=== PATIENT | female | born 1960 ===

== ENCOUNTER → 2022-04-23 09:28 | Outpatient (BNVA) | payer MEDICARE, MEDICAID, SELFPAY | PROVIDERS: Visit Provider Internal Medicine | DX: M47.812 Spondylosis without myelopathy or radiculopathy, cervical region (principal); G43.909 Migraine, unspecified, not intractable, without status migrainosus | CPT/HCPCS: 99202 ==

== ENCOUNTER → 2022-05-04 11:44 | Outpatient (BNVA) | payer MEDICARE, MEDICAID, SELFPAY | PROVIDERS: Visit Provider Internal Medicine | DX: M47.812 Spondylosis without myelopathy or radiculopathy, cervical region (principal) | CPT/HCPCS: 99212 ==

== ENCOUNTER 2022-06-06 05:58 | Outpatient (REF) | payer MEDICARE, MEDICAID, SELFPAY ==
--- NOTE | ~2022-06-06 | FL_ITS ---
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 COMPARISON: None. TECHNIQUE: Fluoroscopy performed by Dr. Matthieu Krishnan. Fluoroscopy time: 0.2 minutes. Cumulative Dose: 1.65 mGy. DAP: 0.214 Gy-cm2. Images: 2. FINDINGS: AP and lateral views of the cervical spine intraoperatively performed. [place] with contrast seen overlying the region of the left facet joints C3-C5. FL/FL guidance in treatment room IMPRESSION: Intraoperative fluoroscopy for pain management procedure.
== END 2022-06-06 05:59 | disposition home or self-care (01) ==
LOC: CF 05:58
PROVIDERS: Visit Provider Internal Medicine
DX: M47.812 Spondylosis without myelopathy or radiculopathy, cervical region (principal)
CPT/HCPCS: 64490; 64491

== ENCOUNTER → 2022-06-08 09:34 | Outpatient (BNVA) | payer MEDICARE, MEDICAID, SELFPAY | PROVIDERS: Visit Provider Internal Medicine | DX: M47.812 Spondylosis without myelopathy or radiculopathy, cervical region (principal); G43.909 Migraine, unspecified, not intractable, without status migrainosus | CPT/HCPCS: Q3014 ==

== ENCOUNTER → 2022-07-20 10:03 | Outpatient (BNVA) | payer MEDICARE, MEDICAID, SELFPAY | PROVIDERS: PCP Internal Medicine; Visit Provider Nurse Practitioner Family | DX: F07.81 Postconcussional syndrome (principal); G47.19 Other hypersomnia; R06.83 Snoring; G43.909 Migraine, unspecified, not intractable, without status migrainosus | CPT/HCPCS: 99202 ==

== ENCOUNTER → 2022-08-31 11:18 | Outpatient (BNVA) | payer MEDICARE, SELFPAY | PROVIDERS: PCP Internal Medicine; Visit Provider Internal Medicine | DX: M47.812 Spondylosis without myelopathy or radiculopathy, cervical region (principal) | CPT/HCPCS: 99212 ==

== ENCOUNTER 2022-09-26 06:02 | Outpatient (REF) | payer MEDICARE, MEDICAID, SELFPAY ==
--- NOTE | ~2022-09-26 | FL_ITS ---
EXAMINATION: XR FLUOROSCOPY WITH IMAGES CLINICAL INFORMATION: Spondylosis without myelopathy or radiculopathy, cervical region. COMPARISON: 06/06/2022 TECHNIQUE: Fluoroscopy Supervised By: Dr. Matthieu Krishnan. Fluoroscopy Time: 0.1 minutes. Cumulative Dose: 0.533 mGy-cm DAP: 0.0561 Gy-cm2 Images: 2. FINDINGS: Images demonstrate needles and contrast appearing to overlie the regions of left facets of C3 through C6. FL/FL guidance in treatment room IMPRESSION: Intraoperative fluoroscopy for pain management procedure.
== END 2022-09-26 06:03 | disposition home or self-care (01) ==
LOC: CF 06:02
PROVIDERS: Visit Provider Internal Medicine
DX: M47.812 Spondylosis without myelopathy or radiculopathy, cervical region (principal); G43.909 Migraine, unspecified, not intractable, without status migrainosus
CPT/HCPCS: 64490; 64491; 64492; J1100

== ENCOUNTER → 2022-10-12 08:49 | Outpatient (BNVA) | payer MEDICARE, MEDICAID, SELFPAY | PROVIDERS: PCP Internal Medicine; Visit Provider Internal Medicine | DX: M47.812 Spondylosis without myelopathy or radiculopathy, cervical region (principal); M25.569 Pain in unspecified knee | CPT/HCPCS: Q3014 ==

== ENCOUNTER → 2022-10-19 10:19 | Outpatient (BNVA) | payer MEDICARE, MEDICAID, SELFPAY | PROVIDERS: PCP Internal Medicine; Visit Provider Internal Medicine | DX: M25.569 Pain in unspecified knee (principal); M47.812 Spondylosis without myelopathy or radiculopathy, cervical region; R60.9 Edema, unspecified | CPT/HCPCS: 20610; 99212; J2795; J3301 ==

== ENCOUNTER 2023-04-04 14:31 | Outpatient (AMB) | payer MEDICARE, MEDICAID, SELFPAY ==
--- NOTE | 2023-04-04 14:32 | MHC.OFFVIS ---
Intake Vital Signs 04/04/23 14:33 Height 5 ft 7 in Weight 214 lb BMI 33.5 Intake Visit Reasons: follow up head trauma - Confirmed Intake Note: Patient presents for follow up head trauma. patient states I still have burning sensation under my nose and throat I was tested for thrush and haven't gotten my results. I haven't been sleeping well because I'm in the same apartment. Allergies Penicillins Allergy (Intermediate, Verified 04/04/23 14:37) lip swellng Seasonal Allergies Allergy (Mild, Verified 04/04/23 14:37) Runny Nose Medication List - Last Reconciled 04/04/23 by NAEL Pak albuterol sulfate 90 mcg/actuation (Ventolin HFA) 2 puffs inhalation Q4H PRN dicyclomine 10 mg PO BID fluticasone propionate 50 mcg/actuation 2 sprays intranasal DAILY furosemide 20 mg PO DAILY hydrochlorothiazide 25 mg PO DAILY ibuprofen 600 mg PO TID loratadine 10 mg PO DAILY losartan 50 mg PO DAILY magnesium oxide 400 mg PO BEDTIME 30 days meclizine 12.5 mg PO TID milk thistle 150 mg PO BID ondansetron HCl 4 mg PO Q8H PRN polyethylene glycol 3350 17 grams PO DAILY riboflavin (vitamin B2) 400 mg PO DAILY 30 days rizatriptan 5 - 10 mg (0.5 - 1 x 10 mg) PO Q2H PRN 21 days HPI HPI Comments History of Present Illness Details 62-yr-old female presents for f/u visit. Pt denies any significant interval medical changes. Pt reports that she continues to have the burning oral/throat symptoms. She did see ENT- she had thrush eval and is to have a upper GI series. She is still f/b [facility]- is supposed to have urine/fecal mold testing. She has not had the HST yet. She is having less headaches overall. Her dizziness i Complaint w/ B2 and Mag Using Rizatriptan prn- just about once a month. She is wondering about her vit D level d/t leg pains and fatigue. [facility] Medical History (Updated 04/04/23 @ 15:28 by NAEL Pak) Acid reflux Allergic rhinitis Allergic rhinitis Anemia Anemia Anxiety Bilateral leg edema Chronic venous insufficiency Chronic venous insufficiency Depression Depression Eczema Eczema Fibroid uterus GERD (gastroesophageal reflux disease) HTN (hypertension) Hyperhidrosis IBS (irritable bowel syndrome) Irritable bowel syndrome Migraine Mild intermittent asthma without complication Mild obstructive sleep apnea GISELLE (obstructive sleep apnea) Prediabetes Prediabetes PTSD (post-traumatic stress disorder) PTSD (post-traumatic stress disorder) Pure hypercholesterolemia Pure hypercholesterolemia Severe obesity Sickle cell trait Sickle cell trait Surgical History H/O colonoscopy History of History of History of carpal tunnel release History of carpal tunnel release Family History Mother Breast cancer Father Vascular disease Maternal Grandfather Lung cancer Brother CAD (coronary artery disease) Prostate cancer Social History Alcohol intake: never Patient Tobacco Use Status: Never used Tobacco Review of Systems Const All systems reviewed & are unremarkable except as noted in HPI and below Physical Exam Vital Signs: BMI result Body Mass Index 33.5 Const General: cooperative and no acute distress Orientation/consciousness: patient oriented x3 HEENT Head: Yes normocephalic Resp Effort & Inspection: normal respiratory effort and able to speak in complete sentences Neuro General: patient oriented x3, gait normal and CN's II-XI intact bilaterally Cognition (Neuro): normal cognition Motor exam (neuro): 5/5 motor strength present throughout Psych Appearance: grossly normal Mental Status: mental status grossly normal Speech and movement: Normal speech and movement present Affect: normal affect Attitude: cooperative Thought process: Normal thought process present Thought content: Normal thought content present Insight: Good insight present (Psych) Judgement: Good judgement present (Psych) Assessment & Plan Assessment & Plan (1) Postconcussion syndrome: Code(s): F07.81 - Postconcussional syndrome (2) Migraine: Code(s): G43.909 - Migraine, unspecified, not intractable, without status migrainosus (3) Sleep difficulties: Code(s): G47.9 - Sleep disorder, unspecified (4) Excessive daytime sleepiness: Code(s): G47.19 - Other hypersomnia (5) Snoring: Code(s): R06.83 - Snoring Plan Pt is again advised to undergo HST to assess status of her sleep apnea. Check vit D level Continue PT exercises F/u w/ ENT as scheduled. F/u w/ [facility]. ? For overall headache management: Discussed importance of good self-care, including but not limited to maintaining a healthy diet, adequate fluid intake, adequate sleep, and engaging in regular physical activity. For acute headache treatment: Continue Rizatriptan prn at onset of migraine. Previous acute migraine medication trials: Sumatriptan- not tolerated. Zomig- effective- but not on pt's insurance formulary. Acute migraine medication contraindications: None at this time. ? For headache prevention medication: Continue Riboflavin 400mg qam Continue Magnesium 400mg qhs Previous migraine prevention medication trials: None Migraine prevention medication contraindications: BBs d/t current resp s/s. ? f/u in 6 months or sooner prn new/worsening s/s. Orders: Orders Vitamin D 25-OH (D2 and D3) Today M79.606 - Pain in leg, unspecified, R53.83 - Other fatigue Medications: Refilled riboflavin (vitamin B2) 400 mg PO DAILY 30 tabs 6RF 30 days magnesium oxide may hold for loose stools 400 mg PO BEDTIME 30 tabs 6RF 30 days rizatriptan max 2 tabs per day or 4 tabs per week 5 - 10 mg (0.5 - 1 x 10 mg) PO Q2H PRN 12 tabs 3RF migraine headache 21 days Coding Level of Care Code Est Pt Level 4 (00724) Diagnoses Postconcussion syndrome F07.81 Migraine G43.909 Sleep difficulties G47.9 Excessive daytime sleepiness G47.19 Snoring R06.83
[2023-04-04 14:33] VITALS: BMI 33.5
== END 2023-04-04 15:46 | disposition home or self-care (01) ==
PROVIDERS: Visit Provider Nurse Practitioner Family
DX: G47.9 Sleep disorder, unspecified (principal); F07.81 Postconcussional syndrome; G44.309 Post-traumatic headache, unspecified, not intractable; G47.19 Other hypersomnia; R06.83 Snoring
CPT/HCPCS: 99213

== ENCOUNTER → 2023-04-04 14:31 | Outpatient (BNVA) | payer MEDICARE, MEDICAID, SELFPAY | PROVIDERS: Visit Provider Nurse Practitioner Family | DX: G43.909 Migraine, unspecified, not intractable, without status migrainosus (principal); F07.81 Postconcussional syndrome; G47.19 Other hypersomnia; R06.83 Snoring; Z79.899 Other long term (current) drug therapy | CPT/HCPCS: 99212 ==

== ENCOUNTER 2023-10-01 09:02 | Outpatient (AMB) | payer MEDICARE, MEDICAID, SELFPAY ==
--- NOTE | 2023-10-01 09:17 | A.OFFVIS_ITS ---
Intake Vital Signs 10/01/23 09:19 Height 5 ft 7 in Weight 214 lb BMI 33.5 BP 130/82 Blood Pressure Location Rt brachial Position Sitting Pulse 61 Pulse Source Pulse Oximeter Pulse Oximetry (%) 97 Oxygen Delivery Method Room Air Intake Visit Reasons: 6Mfollow up head trauma-LVM Intake Note: Patient presents for follow up. I still have burning pain in my throat and mouth area. Allergies Penicillins Allergy (Intermediate, Verified 10/01/23 09:19) lip swellng Seasonal Allergies Allergy (Mild, Verified 10/01/23 09:19) Runny Nose Medication List - Last Reconciled 10/01/23 by Maryjo Huerta, NAEL albuterol sulfate 90 mcg/actuation (Ventolin HFA) 2 puffs inhalation Q4H PRN dicyclomine 10 mg PO BID fluticasone propionate 50 mcg/actuation 2 sprays intranasal DAILY furosemide 20 mg PO DAILY hydrochlorothiazide 25 mg PO DAILY ibuprofen 600 mg PO TID loratadine 10 mg PO DAILY losartan 50 mg PO DAILY magnesium oxide 400 mg PO BEDTIME 30 days meclizine 12.5 mg PO TID milk thistle 150 mg PO BID ondansetron HCl 4 mg PO Q8H PRN polyethylene glycol 3350 17 grams PO DAILY riboflavin (vitamin B2) 400 mg PO DAILY 30 days rizatriptan 5 - 10 mg (0.5 - 1 x 10 mg) PO Q2H PRN 21 days HPI HPI Comments History of Present Illness Details 63-yr-old female presents for f/u visit. Pt denies any significant interval medical changes. Pt states that she continues to have constant throat burning sensation. She is being f/b ENT. She has negative testing for thrush. She is being worked up for mold allergy. She is scheduled for an endoscopy. States she was recently is seeing cardiology, Dr Mendez, at [facility]iology. She is having a migraine approx once a month, which is responsive within a few hours to Rizatriptan. She is complaint w/ Mag and B2. She did not have sleep study yet- would like to do in-lab sleep study d/t new murmur dx. Has a h/o GISELLE. Stopped using CPAP when she has had COVID-19- she returned the machine. Continues to snore and have excessive daytime tiredness. Baseline headache characteristics: Aura- May see flickering lights. Severe, Top of head/frontal dull beeping /throbbing headache, a/w photophobia, phonophobia, nausea, vomiting, some BUE numbness/tingling in BUE (also occurs other times as well), activity intolerance. Postdrome w/ residual fatigue and weakness. She started having migraine at onset of menses, and then they subsided after menopause, and they resumed after the head injury in 2021. [facility] Medical History (Updated 04/04/23 @ 15:28 by NAEL Pak) Allergic rhinitis Eczema PTSD (post-traumatic stress disorder) Depression IBS (irritable bowel syndrome) Mild obstructive sleep apnea GERD (gastroesophageal reflux disease) Prediabetes Pure hypercholesterolemia Sickle cell trait Chronic venous insufficiency Anemia Allergic rhinitis Migraine HTN (hypertension) Eczema Severe obesity Bilateral leg edema PTSD (post-traumatic stress disorder) Irritable bowel syndrome GISELLE (obstructive sleep apnea) Depression Acid reflux Prediabetes Mild intermittent asthma without complication Pure hypercholesterolemia Sickle cell trait Hyperhidrosis Chronic venous insufficiency Anemia Fibroid uterus Anxiety Surgical History History of History of carpal tunnel release History of History of carpal tunnel release H/O colonoscopy Family History Mother Breast cancer Father Vascular disease Maternal Grandfather Lung cancer Brother CAD (coronary artery disease) Prostate cancer Social History Alcohol intake: never Patient Tobacco Use Status: Never used Tobacco Physical Exam Vital Signs: Last Vital Signs Pulse 61 10/01/23 09:19 BP 130/82 10/01/23 09:19 Pulse Ox 97 10/01/23 09:19 Oxygen Delivery Method Room Air 10/01/23 09:19 BMI result Body Mass Index 33.5 Const General: cooperative and no acute distress Orientation/consciousness: patient oriented x3 Resp Effort & Inspection: normal respiratory effort and able to speak in complete sentences Neuro General: patient oriented x3 Cranial nerves: Yes CN's II-XII intact bilaterally Cognition (Neuro): normal cognition Psych Appearance: grossly normal Mental Status: mental status grossly normal Speech and movement: Normal speech and movement present Affect: normal affect Attitude: cooperative Assessment & Plan Assessment & Plan (1) Sleep difficulties: Code(s): G47.9 - Sleep disorder, unspecified (2) Excessive daytime sleepiness: Code(s): G47.19 - Other hypersomnia (3) Snoring: Code(s): R06.83 - Snoring (4) Postconcussion syndrome: Code(s): F07.81 - Postconcussional syndrome (5) Migraine: Code(s): G43.909 - Migraine, unspecified, not intractable, without status migrainosus Plan Pt is again advised to undergo sleep study- will request in-lab PSG- to assess status of her sleep apnea. Continue PT exercises F/u w/ ENT and cardiology as scheduled. F/u w/ [facility]. ? For overall headache management: Discussed importance of good self-care, including but not limited to maintaining a healthy diet, adequate fluid intake, adequate sleep, and engaging in regular physical activity. ? For acute headache treatment: Continue Rizatriptan prn at onset of migraine. Previous acute migraine medication trials: Sumatriptan- not tolerated. Zomig- effective- but not on pt's insurance formulary. Acute migraine medication contraindications: None at this time. ? For headache prevention medication: Continue Riboflavin 400mg qam Continue Magnesium 400mg qhs Previous migraine prevention medication trials: None Migraine prevention medication contraindications: BBs d/t current resp s/s. ? f/u in 6 months or sooner prn new/worsening s/s. Orders: Orders RT PSG in-lab sleep study Today G47.19 - Other hypersomnia, G47.9 - Sleep disorder, unspecified, R06.83 - Snoring Medications: Refilled riboflavin (vitamin B2) 400 mg PO DAILY 30 tabs 6RF 30 days rizatriptan max 2 tabs per day or 4 tabs per week 5 - 10 mg (0.5 - 1 x 10 mg) PO Q2H PRN 12 tabs 3RF migraine headache 21 days magnesium oxide may hold for loose stools 400 mg PO BEDTIME 30 tabs 6RF 30 days Coding Level of Care Code Est Pt Level 4 (50828) Diagnoses Sleep difficulties G47.9 Excessive daytime sleepiness G47.19 Snoring R06.83 Postconcussion syndrome F07.81 Migraine G43.909
[2023-10-01 09:19] VITALS: BP 130/82; PULSE 61; O2SAT 97; BMI 33.5
== END 2023-10-01 09:58 | disposition home or self-care (01) ==
PROVIDERS: PCP Internal Medicine; Visit Provider Nurse Practitioner Family
DX: G47.9 Sleep disorder, unspecified (principal); G47.19 Other hypersomnia; R06.83 Snoring; F07.81 Postconcussional syndrome; G43.909 Migraine, unspecified, not intractable, without status migrainosus
CPT/HCPCS: 99214

== ENCOUNTER → 2023-10-01 09:02 | Outpatient (BNVA) | payer MEDICARE, MEDICAID, SELFPAY | PROVIDERS: PCP Internal Medicine; Visit Provider Nurse Practitioner Family | DX: F07.81 Postconcussional syndrome (principal); G43.909 Migraine, unspecified, not intractable, without status migrainosus; G47.9 Sleep disorder, unspecified; G47.19 Other hypersomnia; R06.83 Snoring | CPT/HCPCS: 99212 ==

== ENCOUNTER 2024-03-20 08:05 | Outpatient (AMB) | payer MEDICARE, MEDICAID, SELFPAY ==
--- NOTE | 2024-03-20 08:11 | A.OFFVIS_ITS ---
Vital Signs 03/20/24 08:12 Height 5 ft 7 in Weight 208 lb BMI 32.6 BP 144/82 H Blood Pressure Location Rt brachial Position Sitting Pulse 54 Pulse Source Pulse Oximeter Pulse Oximetry (%) 98 Oxygen Delivery Method Room Air Intake Visit Reasons: 6M f/u head trauma-Confirmed Intake Note: Patient presents for follow up Allergies Penicillins Allergy (Intermediate, Verified 03/20/24 08:14) lip swellng Seasonal Allergies Allergy (Mild, Verified 03/20/24 08:14) Runny Nose Medication List - Last Reconciled 03/20/24 by NAEL Pak albuterol sulfate 90 mcg/actuation (Ventolin HFA) 2 puffs inhalation Q4H PRN coenzyme Q10 (Ultra CoQ10) 75 mg PO DAILY dicyclomine 10 mg PO BID epinephrine mL IM fluticasone propionate 50 mcg/actuation 2 sprays intranasal DAILY furosemide 20 mg PO DAILY ibuprofen 600 mg PO TID loratadine 10 mg PO DAILY losartan 50 mg PO DAILY magnesium oxide 400 mg PO BEDTIME 30 days meclizine 12.5 mg PO TID milk thistle 150 mg PO BID ondansetron HCl 4 mg PO Q8H PRN polyethylene glycol 3350 17 grams PO DAILY riboflavin (vitamin B2) 400 mg PO DAILY 30 days rizatriptan 5 - 10 mg (0.5 - 1 x 10 mg) PO Q2H PRN 21 days HPI Comments Details: 63-yr-old female presents for f/u visit. Pt denies any significant interval medical changes. Pt reports she has not been sleeping as well. She is sleeping on her couch. She has to replace her mattress, as there was a bedbug infestation in her apartment building. She also has not been spending much time at home to avoid the bedbugs. Has been needing to go to the cooling centers. She states she has started allergy shots through [facility], which has been helping her allergy symptoms to mold, dust mites, dust. States she recently had a Holter monitor (results pending) through cardiology, Dr Mendez, at [facility]iology. She is having a migraine approx 4 days per month- typically increased during the summer heat waves. Migraines are also triggered by light, poor sleep, and coffee- so she stopped taking coffee. which is responsive within a few hours to Using green tea, ice, rest, which helps some. Rizatriptan does help to take the edge off. She was wondering about trying Aleve. Not using Ibuprofen. She is complaint w/ Mag and B2. She did not have sleep study yet- would like to do in-lab sleep study d/t new murmur dx. Has a h/o GISELLE. Stopped using CPAP when she has had COVID-19- she returned the machine. Continues to snore and have excessive daytime tiredness. Baseline headache characteristics: Aura- May see flickering lights. Severe, Top of head/frontal dull beeping /throbbing headache, a/w photophobia, phonophobia, nausea, vomiting, some BUE numbness/tingling in BUE (also occurs other times as well), activity intolerance. Postdrome w/ residual fatigue and weakness. She started having migraine at onset of menses, and then they subsided after menopause, and they resumed after the head injury in 2021. [facility] Medical History (Updated 03/20/24 @ 18:19 by NAEL Pak) Allergic rhinitis Eczema PTSD (post-traumatic stress disorder) Depression IBS (irritable bowel syndrome) Mild obstructive sleep apnea GERD (gastroesophageal reflux disease) Prediabetes Pure hypercholesterolemia Sickle cell trait Chronic venous insufficiency Anemia Allergic rhinitis Migraine HTN (hypertension) Eczema Severe obesity Bilateral leg edema PTSD (post-traumatic stress disorder) Irritable bowel syndrome GISELLE (obstructive sleep apnea) Depression Acid reflux Prediabetes Mild intermittent asthma without complication Pure hypercholesterolemia Sickle cell trait Hyperhidrosis Chronic venous insufficiency Anemia Fibroid uterus Anxiety Surgical History History of History of carpal tunnel release History of History of carpal tunnel release H/O colonoscopy Family History Mother Breast cancer Father Vascular disease Maternal Grandfather Lung cancer Brother CAD (coronary artery disease) Prostate cancer Social History Alcohol intake: never Patient Tobacco Use Status: Never used Tobacco Physical Exam Vital Signs: Last Vital Signs Pulse 54 03/20/24 08:12 BP 144/82 H 03/20/24 08:12 Pulse Ox 98 03/20/24 08:12 Oxygen Delivery Method Room Air 03/20/24 08:12 BMI result Body Mass Index 32.6 Const General: cooperative and no acute distress Orientation/consciousness: patient oriented x3 Resp Effort & Inspection: normal respiratory effort and able to speak in complete sentences Neuro General: patient oriented x3 Cranial nerves: Yes CN's II-XII intact bilaterally Cognition (Neuro): normal cognition Psych Appearance: grossly normal Mental Status: mental status grossly normal Speech and movement: Normal speech and movement present Affect: normal affect Attitude: cooperative Assessment & Plan Assessment & Plan (1) Migraine: Code(s): G43.909 - Migraine, unspecified, not intractable, without status migrainosus Category: Medical Qualifiers: Migraine type: migraine (< 15 days per month) with aura Status migrainosus presence: without status migrainosus Intractability: not intractable Qualified Code(s): G43.109 - Migraine with aura, not intractable, without status migrainosus (2) Postconcussion syndrome: Code(s): F07.81 - Postconcussional syndrome Category: Medical (3) Excessive daytime sleepiness: Code(s): G47.19 - Other hypersomnia Category: Medical (4) Snoring: Code(s): R06.83 - Snoring Category: Medical (5) Sleep difficulties: Code(s): G47.9 - Sleep disorder, unspecified Category: Medical Plan Pt is again advised to undergo sleep study- will request in-lab PSG- to assess status of her sleep apnea. Continue PT exercises F/u w/ ENT and cardiology as scheduled. F/u w/ [facility]. ? For overall headache management: Discussed importance of good self-care, including but not limited to maintaining a healthy diet, adequate fluid intake, adequate sleep, and engaging in regular physical activity. ? For acute headache treatment: Continue Rizatriptan prn at onset of migraine. May take w/ Naproxen 500mg q 12hr prn. Previous acute migraine medication trials: Sumatriptan- not tolerated. Zomig- effective- but not on pt's insurance formulary. Acute migraine medication contraindications: None at this time. ? For headache prevention medication: Continue Riboflavin 400mg qam Continue Magnesium 400mg qhs Previous migraine prevention medication trials: None Migraine prevention medication contraindications: BBs d/t current resp s/s. ? f/u in 6 months or sooner prn new/worsening s/s. Medications: New naproxen Max 15 days per month. Take w/ food. 500 mg PO Q12H PRN 30 tabs 3RF migraine headache 30 days Changed From rizatriptan max 2 tabs per day or 4 tabs per week 5 - 10 mg (0.5 - 1 x 10 mg) PO Q2H 21 days PRN 12 tabs 3RF migraine headache To rizatriptan May take with Naproxen. Max 2 tabs per day or 4 tabs per week 5 - 10 mg (0.5 - 1 x 10 mg) PO Q2H PRN 12 tabs 3RF migraine headache 21 days Coding Level of Care Code Est Pt Level 4 (15130) Diagnoses Migraine with aura and without status migrainosus, not intractable G43.109 Migraine type: migraine (< 15 days per month) with aura Status migrainosus presence: without status migrainosus Intractability: not intractable Postconcussion syndrome F07.81 Excessive daytime sleepiness G47.19 Snoring R06.83 Sleep difficulties G47.9
[2024-03-20 08:12] VITALS: BP 144/82; PULSE 54; O2SAT 98; BMI 32.6
== END 2024-03-20 09:04 | disposition home or self-care (01) ==
PROVIDERS: PCP Internal Medicine; Visit Provider Nurse Practitioner Family
DX: G43.109 Migraine with aura, not intractable, without status migrainosus (principal); F07.81 Postconcussional syndrome; G47.19 Other hypersomnia; R06.83 Snoring; G47.9 Sleep disorder, unspecified
CPT/HCPCS: 99214

== ENCOUNTER → 2024-03-20 08:05 | Outpatient (BNVA) | payer MEDICARE, MEDICAID, SELFPAY | PROVIDERS: PCP Internal Medicine; Visit Provider Nurse Practitioner Family | DX: G43.109 Migraine with aura, not intractable, without status migrainosus (principal); R06.83 Snoring; G47.19 Other hypersomnia; G47.9 Sleep disorder, unspecified; F07.81 Postconcussional syndrome | CPT/HCPCS: 99212 ==

== ENCOUNTER → 2024-05-05 19:30 | Outpatient (REF) | payer MEDICARE, MEDICAID, SELFPAY | LOC: HO.SL 19:30 | PROVIDERS: PCP Internal Medicine; Visit Provider Nurse Practitioner Family | DX: R06.83 Snoring (principal); G47.19 Other hypersomnia; G47.9 Sleep disorder, unspecified | CPT/HCPCS: 95810 ==

== ENCOUNTER → 2024-05-05 22:54 | Outpatient (BNV) | payer MEDICARE, MEDICAID, SELFPAY | PROVIDERS: PCP Internal Medicine; Visit Provider Psychiatry & Neurology Neurology | DX: G47.33 Obstructive sleep apnea (adult) (pediatric) (principal) | CPT/HCPCS: 95810 ==

== ENCOUNTER 2024-05-21 11:09 | Outpatient (AMB) | payer MEDICARE, MEDICAID, SELFPAY ==
--- NOTE | 2024-05-21 11:09 | MHC.OFFVIS ---
Vital Signs 05/21/24 11:11 Height 5 ft 7 in Weight 204 lb 1 oz BMI 32.0 Intake Visit Reasons: Follow up Intake Note: Patient presents for follow up. had a sleep study done Allergies Penicillins Allergy (Intermediate, Verified 05/21/24 11:12) lip swellng Seasonal Allergies Allergy (Mild, Verified 05/21/24 11:12) Runny Nose mold Allergy (Unknown, Uncoded 05/21/24 11:13) Unknown HPI Comments Details: 63-yr-old female presents for f/u visit to discuss recent sleep study results. Since the last visit, pt underwent in-lab sleep study, results of which were c/w mild sleep apnea, w/ increased severity in REM sleep. AHI 8/hr w/ REM AHI 32/hr, O2 kp 80%, SpO2 < 88% x's 9 min, avergae SpO2 93%, PLMS < 1/hr. Pt is interested in resuming PAP tx. States she used to sleep well with CPAP, and only stopped using it d/t having COVID-19 some time ago. Pt reports she has not been sleeping well. She states she no longer has a mattress and has to sleep on her couch or a reclining beach/lawn chair d/t the recent bedbug infestation in her apartment building. Per pt her apartment has been tretaed, however she is still finding bedbug bites on her legs. She brings in a live bed bug in a sealed prescription container. She would like referal to ENT d/t her ongoing throat discomfort. She denies acid reflux, heart burn. She is having a migraine approx 4 days per month- typically increased during the summer heat waves. Migraines are also triggered by light, poor sleep, and coffee- so she stopped taking coffee. which is responsive within a few hours to Using green tea, ice, rest, which helps some. Rizatriptan does help to take the edge off. She was wondering about trying Aleve. Not using Ibuprofen. She is complaint w/ Mag and B2. Baseline headache characteristics: Aura- May see flickering lights. Severe, Top of head/frontal dull beeping /throbbing headache, a/w photophobia, phonophobia, nausea, vomiting, some BUE numbness/tingling in BUE (also occurs other times as well), activity intolerance. Postdrome w/ residual fatigue and weakness. She started having migraine at onset of menses, and then they subsided after menopause, and they resumed after the head injury in 2021. [facility] Medical History (Updated 05/21/24 @ 20:37 by NAEL Pak) Allergic rhinitis Eczema PTSD (post-traumatic stress disorder) Depression IBS (irritable bowel syndrome) Mild obstructive sleep apnea GERD (gastroesophageal reflux disease) Prediabetes Pure hypercholesterolemia Sickle cell trait Chronic venous insufficiency Anemia Allergic rhinitis Migraine HTN (hypertension) Eczema Severe obesity Bilateral leg edema PTSD (post-traumatic stress disorder) Irritable bowel syndrome GISELLE (obstructive sleep apnea) Depression Acid reflux Prediabetes Mild intermittent asthma without complication Pure hypercholesterolemia Sickle cell trait Hyperhidrosis Chronic venous insufficiency Anemia Fibroid uterus Anxiety Surgical History History of History of carpal tunnel release History of History of carpal tunnel release H/O colonoscopy Family History Mother Breast cancer Father Vascular disease Maternal Grandfather Lung cancer Brother CAD (coronary artery disease) Prostate cancer Social History Alcohol intake: never Patient Tobacco Use Status: Never used Tobacco Physical Exam Vital Signs: BMI result Body Mass Index 32.0 Const General: cooperative and no acute distress Orientation/consciousness: patient oriented x3 Resp Effort & Inspection: normal respiratory effort and able to speak in complete sentences Neuro General: patient oriented x3 Cranial nerves: Yes CN's II-XII intact bilaterally Cognition (Neuro): normal cognition Psych Appearance: grossly normal Mental Status: mental status grossly normal Speech and movement: Normal speech and movement present Affect: normal affect Attitude: cooperative Assessment & Plan Assessment & Plan (1) Mild obstructive sleep apnea: Comment: previous tx: APAP [id number] Code(s): G47.33 - Obstructive sleep apnea (adult) (pediatric) Category: Medical (2) Migraine: Code(s): G43.909 - Migraine, unspecified, not intractable, without status migrainosus Category: Medical Qualifiers: Migraine type: migraine (< 15 days per month) with aura Status migrainosus presence: without status migrainosus Intractability: not intractable Qualified Code(s): G43.109 - Migraine with aura, not intractable, without status migrainosus (3) Postconcussion syndrome: Code(s): F07.81 - Postconcussional syndrome Category: Medical (4) Excessive daytime sleepiness: Code(s): G47.19 - Other hypersomnia Category: Medical (5) Snoring: Code(s): R06.83 - Snoring Category: Medical (6) Sleep difficulties: Code(s): G47.9 - Sleep disorder, unspecified Category: Medical Plan For sleep difficulties: Reviewed in-lab sleep study results- mild GISELLE. Resume APAP [id number] nightly > 4 hrs. Note pt probabbly should not start PAP tx until the bedbug/cockroach infestation is cleared from her apartment. Pt asks for a letter r/t her sleep issues and the bedbug/cockroach etc infestations at her apartment. F/u w/ ENT- pt advsied she can call them to make a f/u appt. F/u cardiology as scheduled. F/u w/ [facility] as scheduled. ? For overall headache management: Discussed importance of good self-care, including but not limited to maintaining a healthy diet, adequate fluid intake, adequate sleep, and engaging in regular physical activity. ? For acute headache treatment: Continue Rizatriptan prn at onset of migraine. May take w/ Naproxen 500mg q 12hr prn. Previous acute migraine medication trials: Sumatriptan- not tolerated. Zomig- effective- but not on pt's insurance formulary. Acute migraine medication contraindications: None at this time. ? For headache prevention medication: Continue Riboflavin 400mg qam Continue Magnesium 400mg qhs Previous migraine prevention medication trials: None Migraine prevention medication contraindications: BBs d/t current resp s/s. ? f/u in 6 months or sooner prn new/worsening s/s. Coding Level of Care Code Est Pt Level 4 (77951) Diagnoses Mild obstructive sleep apnea G47.33 Migraine with aura and without status migrainosus, not intractable G43.109 Migraine type: migraine (< 15 days per month) with aura Status migrainosus presence: without status migrainosus Intractability: not intractable Postconcussion syndrome F07.81 Excessive daytime sleepiness G47.19 Snoring R06.83 Sleep difficulties G47.9
[2024-05-21 11:11] VITALS: BMI 32.0
== END 2024-05-21 12:02 | disposition home or self-care (01) ==
PROVIDERS: PCP Internal Medicine; Visit Provider Nurse Practitioner Family
DX: G47.33 Obstructive sleep apnea (adult) (pediatric) (principal); G43.109 Migraine with aura, not intractable, without status migrainosus; F07.81 Postconcussional syndrome; G47.19 Other hypersomnia; R06.83 Snoring; G47.9 Sleep disorder, unspecified
CPT/HCPCS: 99214

== ENCOUNTER → 2024-05-21 11:09 | Outpatient (BNVA) | payer MEDICARE, MEDICAID, SELFPAY | PROVIDERS: PCP Internal Medicine; Visit Provider Nurse Practitioner Family | DX: G47.33 Obstructive sleep apnea (adult) (pediatric) (principal); G43.109 Migraine with aura, not intractable, without status migrainosus; G47.19 Other hypersomnia; F07.81 Postconcussional syndrome; R06.83 Snoring | CPT/HCPCS: 99212 ==

== ENCOUNTER 2024-12-24 12:53 | Outpatient (AMB) | payer MEDICARE, MEDICAID, SELFPAY ==
--- NOTE | 2024-12-24 13:05 | A.OFFVIS_ITS ---
Vital Signs 3 12/24/24 13:10 Height 5 ft 7 in Weight 198 lb BMI 31.0 BP 150/90 H Blood Pressure Location Rt brachial Position Sitting Intake Visit Reasons: Follow up Intake Note: Follow up for migraines/sleep Linoleum Floor Layer Required: No Accompanied by: Self / Same As Patient Allergies Penicillins Allergy (Intermediate, Verified 12/24/24 13:11) lip swellng Seasonal Allergies Allergy (Mild, Verified 12/24/24 13:11) Runny Nose mold Allergy (Unknown, Uncoded 05/21/24 11:13) Unknown Medication List - Last Reconciled 12/24/24 by NAEL Pak albuterol sulfate 90 mcg/actuation (Ventolin HFA) 2 puffs inhalation Q4H PRN coenzyme Q10 (Ultra CoQ10) 75 mg PO DAILY epinephrine mL IM fluticasone propionate 50 mcg/actuation 2 sprays intranasal DAILY losartan 50 mg PO DAILY magnesium oxide 400 mg PO BEDTIME 30 days milk thistle 150 mg PO BID naproxen 500 mg PO Q12H PRN 30 days polyethylene glycol 3350 17 grams PO DAILY riboflavin (vitamin B2) 400 mg PO DAILY 90 days rizatriptan 5 - 10 mg (0.5 - 1 x 10 mg) PO Q2H PRN 21 days HPI Comments Details: 64-yr-old female presents for f/u of GISELLE and migraine. Pt reports she moved out of her old apartment, and into a new apartment w/o carpeting in [place]. She replaced most of her belongings, and was able to move without carrying the bedbugs with her. Pt is sleeping better, but still having nocturia 4-5 x's per night. She is taking quite a bit of water. Her new apartment has central air. She still does not have her CPAP machine. She reports her burning throat symptoms are better since moving, but still occuring. She saw ENT, per pt- they felt she might have had nerve damage in her throat d/t debris she inhaled when her ceiling fell on her. She is still seeing [facility]- for allergy injections. Previous, in-lab sleep study, results were c/w mild sleep apnea, w/ increased severity in REM sleep. AHI 8/hr w/ REM AHI 32/hr, O2 kp 80%, SpO2 < 88% x's 9 min, average SpO2 93%, PLMS < 1/hr. She reports her migraine attacks are overall getting better. She has had a few more the last 1-2 weeks, which she attributes to the weather changes and nasal allergy s/s. Migraines are also triggered by light, poor sleep, and coffee- so she stopped taking coffee. which is responsive within a few hours to using green tea, ice, rest, which helps some. Rizatriptan does help to take the edge off, and Naproxen continues to be helpful. She is complaint w/ Mag and B2. Baseline headache characteristics: Aura- May see flickering lights. Severe, Top of head/frontal dull beeping /throbbing headache, a/w photophobia, phonophobia, nausea, vomiting, some BUE numbness/tingling in BUE (also occurs other times as well), activity intolerance. Postdrome w/ residual fatigue and weakness. She started having migraine at onset of menses, and then they subsided after menopause, and they resumed after the head injury in 2021. [facility] Medical History (Updated 05/21/24 @ 20:37 by NAEL Pak) Allergic rhinitis Eczema PTSD (post-traumatic stress disorder) Depression IBS (irritable bowel syndrome) Mild obstructive sleep apnea GERD (gastroesophageal reflux disease) Prediabetes Pure hypercholesterolemia Sickle cell trait Chronic venous insufficiency Anemia Allergic rhinitis Migraine HTN (hypertension) Eczema Severe obesity Bilateral leg edema PTSD (post-traumatic stress disorder) Irritable bowel syndrome GISELLE (obstructive sleep apnea) Depression Acid reflux Prediabetes Mild intermittent asthma without complication Pure hypercholesterolemia Sickle cell trait Hyperhidrosis Chronic venous insufficiency Anemia Fibroid uterus Anxiety Surgical History History of History of carpal tunnel release History of History of carpal tunnel release H/O colonoscopy Family History Mother Breast cancer Father Vascular disease Maternal Grandfather Lung cancer Brother CAD (coronary artery disease) Prostate cancer Social History Alcohol intake: never Patient Tobacco Use Status: Never used Tobacco Physical Exam Vital Signs: BMI result Body Mass Index 31.0 Assessment & Plan Assessment & Plan (1) Mild obstructive sleep apnea: Comment: previous tx: APAP [id number] Code(s): G47.33 - Obstructive sleep apnea (adult) (pediatric) Category: Medical (2) Migraine: Code(s): G43.909 - Migraine, unspecified, not intractable, without status migrainosus Category: Medical Qualifiers: Intractability: not intractable Migraine type: migraine (< 15 days per month) with aura Status migrainosus presence: without status migrainosus Q ualified Code(s): G43.109 - Migraine with aura, not intractable, without status migrainosus (3) Postconcussion syndrome: Code(s): F07.81 - Postconcussional syndrome Category: Medical (4) Excessive daytime sleepiness: Code(s): G47.19 - Other hypersomnia Category: Medical (5) Snoring: Code(s): R06.83 - Snoring Category: Medical (6) Sleep difficulties: Code(s): G47.9 - Sleep disorder, unspecified Category: Medical Plan For sleep difficulties: Reviewed in-lab sleep study results- mild GISELLE. Resume APAP [id number] nightly > 4 hrs- as pt has moved into a new apartment building. To help optimize PAP tx usage: * Resume flonase * Trial Xyzal 2.5-5mg qhs prn allergy s/s F/u w/ ENT as scheduled. F/u w/ cardiology as scheduled. F/u w/ [facility] as scheduled. ? For overall headache management: Discussed importance of good self-care, including but not limited to maintaining a healthy diet, adequate fluid intake, adequate sleep, and engaging in regular physical activity. ? For acute headache treatment: Continue Rizatriptan prn at onset of migraine. May take w/ Naproxen 500mg q 12hr prn. Previous acute migraine medication trials: Sumatriptan- not tolerated. Zomig- effective- but not on pt's insurance formulary. Acute migraine medication contraindications: None at this time. ? For headache prevention medication: Resume Co-Q10 400mg qam w/ food. Continue Riboflavin 400mg qam Continue Magnesium 400mg qhs Previous migraine prevention medication trials: None Migraine prevention medication contraindications: BBs d/t current resp s/s. ? f/u in 6 months or sooner prn new/worsening s/s. Medications: New 2 coenzyme Q10 (Co Q-10) 400 mg PO DAILY 90 caps 3RF 90 days levocetirizine (Xyzal) 2.5 - 5 mg (0.5 - 1 x 5 mg) PO BEDTIME PRN 30 tabs 3RF allergy symptoms 30 days Changed 2 From rizatriptan May take with Naproxen. Max 2 tabs per day or 4 tabs per week 5 - 10 mg (0.5 - 1 x 10 mg) PO Q2H 21 days PRN 12 tabs 3RF migraine headache To rizatriptan May take with Naproxen. Max 2 tabs per day or 4 tabs per week 5 - 10 mg (0.5 - 1 x 10 mg) PO Q2H PRN 12 tabs 6RF migraine headache 30 days From magnesium oxide may hold for loose stools 400 mg PO BEDTIME 30 days 30 tabs 6RF To magnesium oxide may hold for loose stools 400 mg PO BEDTIME 90 tabs 3RF 90 days From fluticasone propionate 50 mcg/actuation 2 sprays intranasal DAILY To fluticasone propionate 50 mcg/actuation 2 sprays intranasal DAILY 16 grams 3RF 30 days Refilled 2 naproxen Max 15 days per month. Take w/ food. 500 mg PO Q12H PRN 30 tabs 6RF migraine headache 30 days riboflavin (vitamin B2) 400 mg PO DAILY 90 tabs 3RF 90 days Coding Level of Care Code Est Pt Level 4 (93613) Diagnoses Mild obstructive sleep apnea G47.33 Migraine with aura and without status migrainosus, not intractable G43.109 Intractability: not intractable Migraine type: migraine (< 15 days per month) with aura Status migrainosus presence: without status migrainosus Postconcussion syndrome F07.81 Excessive daytime sleepiness G47.19 Snoring R06.83 Sleep difficulties G47.9
[2024-12-24 13:10] VITALS: BP 150/90; BMI 31.0
--- OUTSIDE RECORDS SUMMARY | 2024-12-24 13:30 | XMS_ITS | Clinical Summary ---
Author Organization [address] [place] [address] [place] [phone] Phone Care Team Providers Care Silverware Assembler Name Role Phone Mikki Sales MD Primary Care Provider [phone] Allergies Active Allergy Reactions Criticality Noted Date Comments Food Allergy Formula 07/24/2019 Jodi Other Itching High 12/04/2010 Seasonal Allergies Runny nose, red itchy eyes Penicillin G Swelling 06/29/2019 Lip swollen Medications acetylcysteine 500 mg capsule Take by mouth. Active cyanocobalamin/f olic acid (COBALAMINE COMBINATIONS ORAL) Cobalamin Combinations (B-12) 1000-[address] under the tongue. Active ibuprofen (ADVIL,MOTRIN) 600 mg tablet TAKE 1 TABLET BY MOUTH EVERY 8 HOURS NEEDED FOR PAIN 2 Active MILK THISTLE ORAL Take by mouth. Activ e polyethylene glycol (MIRALAX) 17 gram packet Take 17 g by mouth daily. 4 Active reservoir inhalation (INSPIREASE) device Use with inhaler 2 Active albuterol HFA (Ventolin HFA) 90 mcg/actuation inhaler Inhale 2 Puffs into the lungs every 4 hours as needed for Cough or Wheezing. 3 Active aluminum chloride (Drysol Dab-O-Matic) 20 % external solution 3 Active ciclopirox (PENLAC) 8 % solution Apply daily to nails clean medication residue off of nail plate every 3 days with rubbing alcohol 3 Active EPINEPHrine (EpiPen 2-Jorge) 0.3 mg/0.3 mL injection 4 Active fluticasone propionate (FLONASE) 50 mcg/actuation nasal spray 2 Sprays by Each Nare route daily. 3 Active polyethylene glycol (Golytely) 236-22.74-6.74 -5.86 gram solution Take 4 L by mouth once for 1 dose. Drink half of prep, and repeat again after 4 to 6 hours 4 Active riboflavin (VITAMIN B2) 400 mg tablet Take 1 Tablet by mouth daily. 3 Active rizatriptan (MAXALT) 10 mg tablet Take 1 Tablet by mouth as needed. May repeat in 2 hours if needed Active coenzyme Q-10 100 mg capsule Take 3 Capsules by mouth daily. Active benzonatate (TESSALON) 100 mg capsule TAKE 1 CAPSULE BY MOUTH THREE TIMES DAILY FOR UP TO 7 DAYS NEEDED FOR COUGH Active chlorhexidine (PERIDEX) 0.12 % solution Active doxycycline (ADOXA) 100 mg tablet Active levoFLOXacin (LEVAQUIN) 750 mg tablet Take 1 tablet (750 mg total) by mouth 1 (one) time each day. for 7 days 5 Active Linzess 290 mcg capsule Take 1 capsule (290 mcg total) by mouth 1 (one) time each day. Active naproxen (NAPROSYN) 500 mg tablet TAKE 1 TABLET BY MOUTH EVERY 12 HOURS NEEDED FOR MIGRAINE HEADACHE. MAX 15 DAYS PER MONTH. TAKE WITH FOOD 4 Active hydroCHLOROthiaz vaibhav (HYDRODIURIL) 25 mg tablet Take 1 tablet (25 mg total) by mouth 1 (one) time each day. 90 tablet 2 5 Active losartan (COZAAR) 100 mg tablet Take 1 tablet (100 mg total) by mouth 1 (one) time each day. 90 tablet 2 5 Active magnesium oxide (MAG-OX) 400 mg (241.3 elemental magnesium) tablet Take 1 tablet (400 mg total) by mouth 1 (one) time each day. 90 tablet 2 5 Active cyanocobalamin (Vitamin B-12) 500 mcg tabletIndication s:Vitamin B12 deficiency Take 1 tablet (500 mcg total) by mouth 1 (one) time each day. 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 Sternal jugular veins also prominent. We will obtain echocardiogram to make sure she does not have a structural heart disease. She is supposed to have the labs. I will add a BNP to her routine lab order. Palpitations 10/04/2022 Overview (05/14/2024): Last Assessment & Plan: Controlled with lifestyle change. Assessment & Plan (10/27/2024 9:16 AM EDT): Orders: Cardiac holter monitor (<= 48 hours); Future Bilateral tinnitus 07/27/2022 Overview (09/14/2024): Tinnitus, bilateral; Note: Date Diagnosed: 07/27/2022 2:56 PM (H93.13) Cough 07/27/2022 Overview (09/14/2024): Cough, unspecified; Note: Changed from R05 to R05.9 (07/31/2022 12:30 PM) , Date Diagnosed: 07/27/2022 2:56 PM (R05) Headache 07/27/2022 Overview (09/14/2024): Headache, unspecified; Note: Changed from R51 to R51.9 (07/31/2022 12:29 PM) , Date Diagnosed: 07/27/2022 2:56 PM (R51) Anemia 07/24/2019 Assessment & Plan (10/27/2024 9:16 AM EDT): Orders: Comprehensive metabolic panel; Future Lipid panel with reflex to direct LDL; Future Complete blood count; Future Thyroid stimulating hormone; Future Vitamin B12; Future Anxiety 07/24/2019 Chronic venous insufficiency 07/24/2019 Fibroid uterus 07/24/2019 Overview (05/14/2024): multiple Hyperhidrosis 07/24/2019 Sickle cell trait ([facility] V24) 07/24/2019 Mild intermittent asthma without complication Pure hypercholesterolemia 06/29/2019 Assessment & Plan (10/27/2024 9:16 AM EDT): Orders: Comprehensive metabolic panel; Future Lipid panel with reflex to direct LDL; Future Complete blood count; Future Thyroid stimulating hormone; Future Vitamin B12; Future Depression 06/12/2013 Assessment & Plan (10/27/2024 9:16 AM EDT): Orders: Comprehensive metabolic panel; Future Lipid panel with reflex to direct LDL; Future Complete blood count; Future Thyroid stimulating hormone; Future Vitamin B12; Future GISELLE (obstructive sleep apnea) 11/17/2012 Overview (05/14/2024): 03/2017 Home Sleep Study: Mild GISELLE, rec. Auto CPAP 8-20cm H2O w/ heated humidification or f/u titration Irritable bowel syndrome with constipation 01/26 Overview (05/14/2024): Non ulcer dyspepsia PTSD (post-traumatic stress disorder) 09/18/2010 Bilateral leg edema 09/02/2009 Severe obesity (BMI 35.0-39. 9) with comorbidity (CMS/[facility] V24, [facility] V28) 09/02/2009 Eczema 07/06/2009 Allergic rhinitis 05/03/2009 HTN (hypertension), benign 05/03/2009 Overview (05/14/2024): Previous pcp [facility] 08/21- [place] Last Assessment & Plan: Blood pressure is high today. But she did not take her medications. Asked her to monitor blood pressures at home. She appears taking both furosemide and hydrochlorothiazide. I will discontinue hydrochlorothiazide. Assessment & Plan (10/27/2024 9:16 AM EDT): Orders: Comprehensive metabolic panel; Future Lipid panel with reflex to direct LDL; Future Complete blood count; Future Thyroid stimulating hormone; Future Vitamin B12; Future Migraine 05/03/2009 Encounters Date Type Department Care Team Description 12/03/2024 Telephone Vascular Surgery - [place] [address] [facility] [address] [place] [phone] Loreta Torres MD Fitting for DME 12/03/2024 Telephone Internal Medicine [facility] 175 [facility] 200 [place] [phone] Mikki Sales MD [place]: Bloodwork Request 11/24/2024 9:30 AM EDT Office Visit Orthopedic Surgery [facility] 250 175 [facility] [address] [place] [phone] Vipul West DPM Controlled type 2 diabetes with neuropathy (CMS/[facility] V24, CMS/[facility]ER[facility] V28) (Primary Dx); Pain in both feet; Achilles tendinitis, left leg; Calcaneal spur of left foot 11/24/2024 8:30 AM EDT Office Visit Internal Medicine [facility] 175 [facility] 200 [place] [phone] Jm Rosa NP Hypertension, unspecified type (Primary Dx); Anxiety and depression; Palpitations; BMI 30.0-30.9,adult; At moderate risk for fall; Osteoarthritis of both knees, unspecified osteoarthritis type; Lymphedema; Chronic venous insufficiency; Vitamin B12 deficiency 11/24/2024 Telephone Internal Medicine - [place] 175 [facility] [address] [place] [phone] Jm Rosa NP Medical supplies 11/24/2024 Telephone Internal Medicine - [place] 175 [facility] [address] [place] [phone] Mikki Sales MD Form: Request For Acommodation 11/19/2024 10:00 AM EDT Ancillary Procedure [facility] [address] [facility] 101 [place] [phone] Palpitations 10/27/2024 8:15 AM EDT Office Visit Internal Medicine - [place] 175 [facility] [address] [place] [phone] Mikki Sales MD Anemia, unspecified type (Primary Dx); HTN (hypertension), benign; Pure hypercholesterolemia; Depression, unspecified depression type; Hyperglycemia; Palpitations; Encounter for subsequent annual wellness visit (AWV) in Medicare patient 10/27/2024 Telephone Internal Medicine - [place] [address] [phone] Lidia Holloway [place] Walk-in from Last 3 Months Immunizations Name Administration Dates Next Due Hep B, Unspecified 10/08/2008,08/25/2008 Hepatitis B ([id number] , Recombivax HB-Adult) 19yo and older 05/15/2013,12/13/2008,10/08/2008,08/25 Influenza trivalent, with pr eservative (Fluzone; Afluria) 6mo and older 08/16/2008 Measles 08/19/2008 Meningococcal MCV4P 03/27/2017 Meningococcal, Unspecified 03/27/2017 Mumps 08/19/2008 PPD Test 09/07/2011,11/21/2009 Pneumococcal polysaccharide 23 valent (Pneumovax 23) 2yo and older 11/07/2018 Rubella 08/19/2008 Tdap Tetanus diptheria acell ular pertussis (Boostrix; Adacel) 7yo and older 11/07/2018,11/21/2009,08/16/2008 Varicella live (Varivax) 12m o and older 08/19/2008 Surgical History Surgery Date Site/Laterality Comments ESOPHAGOGASTRODUODENOSCOPY 09/06/2010 PROCEDURE: RI ESOPHAGOGASTRODUODENOSCOPY TRANSORAL DIAGNOSTIC; COMMENT: Normal SECTION PROCEDURE: HISTORICAL ; COMMENT: x 2 COLONOSCOPY 11/23/2011 PROCEDURE: HISTORICAL COLONOSCOPY; COMMENT: normal CARPAL TUNNEL RELEASE 11/2015 Left PROCEDURE: HISTORICAL CARPAL TUNNEL REL; COMMENT: Right - 08/2015 OTHER SURGICAL HISTORY 02/22/2012 PROCEDURE: RI ENDOMETRIAL BX W/WO ENDOCERVIX BX W/O DILAT SPX; COMMENT: DUB OTHER SURGICAL HISTORY 03/23/2011 PROCEDURE: RI ENDOMETRIAL BX W/WO ENDOCERVIX BX W/O DILAT SPX; COMMENT: DUB COLONOSCOPY 05/21/2017 PROCEDURE: HISTORICAL COLONOSCOPY; COMMENT: No report Medical History Medical History Date Comments Acid reflux DX:Acid reflux Prediabetes DX:Prediabetes Migraine DX:Migraine PTSD (post-traumatic stress disorder) 09/18/2010 DX:PTSD (post-traumatic stress disorder) Depression 06/12/2013 DX:Depression Anxiety 07/24/2019 DX:Anxiety GISELLE (obstructive sleep apnea) 11/17/2012 DX :GISELLE (obstructive sleep apnea); COMMENT: 03/2017 Home Sleep Study: Mild GISELLE, rec. Auto CPAP 8-20cm H2O w/ heated humidification or f/u titration Fibroid uterus 07/24/2019 DX:Fibroid uteru s; COMMENT: multiple Anemia 07/24/2019 DX:Anemia Chronic venous insufficiency 07/24/2019 DX: Chronic venous insufficiency Hyperhidrosis 07/24/2019 DX:Hyperhidrosis Sickle cell trait (CMS/HCC V24) 07/24/2019 DX:Sickle cell trait (HCC) Severe obesity (BMI 35.0-39. 9) with comorbidity (CMS/HCC V24, CMS/HCC V28) 09/02/2009 DX:Severe obesity (BMI 35.0- 39.9) with comorbidity ([facility]) Pure hypercholesterolemia 06/29/2019 DX:Pur e hypercholesterolemia Mild intermittent asthma wit hout complication 06/29/2019 DX:Mild intermittent asthma without complication Irritable bowel syndrome 01/26/2011 DX:Irri table bowel syndrome; COMMENT: Non ulcer dyspepsia HTN (hypertension), benign 05/03/2009 DX:HT N (hypertension), benign; COMMENT: Previous pcp [facility] 08/21-[place] Eczema 07/06/2009 DX:Eczema Bilateral leg edema 09/02/2009 DX:Bilateral leg edema Allergic rhinitis 05/03/2009 DX:Allergic rh initis Family History Medical History Relation Name Comments Coronary artery disease Brother Other: vascular disease Father vei ns in legs , they thought they may have to take off a toe Lung cancer Maternal Grandfather Breast cancer Mother age 66, D iabetes Colon cancer Neg Hx as of 10/20/2013 Relation Name Status Comments Brother Father Alive Maternal Grandfather Mother (Age 68) breast can cer Social History Tobacco Use Types Packs/Day Years Used Date Smoking Tobacco: Never Smokeless Tobacco: Never Alcohol Use Standard Drinks/Week Comments No 0 (1 standard drink = 0.6 oz pur e alcohol) Comments No Sex and Gender Information Value Date Recorded Sex Assigned at Not on file Legal Sex Female 7:29 AM EST Gender Identity Not on file Sexual Orientation Not on file 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 Not on file Not on file Not on file Obstetrics History Para Term AB IAB SAB Ectopic Multiple Livin g Live Births 3 2 2 1 1 2 2 Date Outcome GA Total Labor Labor/2nd/3rd Weight Sex Type Anes PTL Fina A1 A5 Name Clin IAB 1990 Term M CS-Un spec Living Isabel 1995 Term F CS-Un spec Living Myasha Last Filed Vital Signs Vital Sign Reading Time Taken Comments Blood Pressure 140/98 11/24/2024 8:27 AM EDT Pulse 58 11/24/2024 8:26 AM EDT Temperature 36.6 ??C (97.8 ??F) 11/24/2024 8:26 AM ED T Respiratory Rate - - Oxygen Saturation 98% 11/24/2024 8:26 AM EDT Inhaled Oxygen Concentration - - Weight 88 kg (194 lb) 11/24/2024 9:56 AM EDT Height 170.2 cm (5' 7.01 ) 11/24/2024 9:56 AM ED T Body Mass Index 30.38 11/24/2024 9:56 AM EDT Plan of Treatment Upcoming Encounters Date Type Department Care Team (Late st Contact Info) Description 02/17/2025 8:15 AM EDT Office Visit Orthopedic Surgery - [place] 250 175 [facility] 250 [place] [phone] Vipul West DPM 175 [facility] 250 [place] [address] 02/17/2025 9:45 AM EDT Office Visit Internal Medicine - [place] 175 [facility] 200 [place] [phone] Mikki Sales MD 175 [facility] 200 [place] [phone] 02/25/2025 2:15 PM EDT Ancillary Procedure [facility] 101 300 [facility] 101 [place] [phone] 03/10/2025 2:00 PM EDT Office Visit Vascular Surgery - [place] 300 [facility] 210 [place] [phone] Loreta Torres MD 300 [facility] 210 [place] [address] Health Maintenance Due Date Last Done Comments Diabetes: Annual Foot Exam 1972 Diabetes: Annual Retina Eye Exam 1972 Zoster Vaccines (1 of 2) 2012 08/19/2008 Pneumococcal Vaccine: 50+ Years (2 of 2 - PCV) 11/08/2019 11/07/2018 Pneumococcal Vaccine: Pediatrics (0 to 5 Years) and At-Risk Patients (6 to 64 Years) (2 of 2 - PCV) 11/08/2019 11/07/2018 RSV Immunization Adult Patients (1 - Risk 60-74 years 1-dose series) 2022 Social Influencers of Health Screening 07/21/2022 COVID-19 Vaccine ( - season) 2024 Diabetes: Annual Urine Albumin-Creatinine Ratio (uACR) 11/25/2024 03/28/2022 Influenza Vaccine (Season Ended) 2025 08/16/2008 Diabetes: Blood Sugar Control Test (HGBA1C) 04/29/2025 10/27/2024, 10/11/2022 Breast Cancer Screening 06/11/2025 06/11/2023 Depression Screening 10/27/2025 10/27/2024 Diabetes: Annual GFR (Glomerular Filtration Rate) 10/27/2025 10/27/2024, 10/11/2022 Hypertension/CHF/CAD Annual BMP Blood Test 10/27/2025 10/27/2024, 10/11/2022 Medicare Annual Wellness Visit 10/27/2025 10/27/2024 Colorectal Cancer Screening: Colonoscopy 05/21/2027 05/21/2017 DTaP,Tdap,and Td Vaccines (4 - Td or Tdap) 11/07/2028 11/07/2018, 11/21/2009, 08/16/2008 Cervical Cancer Screening: HPV 09/16/2029 09/16/2024, 08/25/2020 Cholesterol Screening (Lipid Panel) 10/27/2029 10/27/2024, 03/27/2022 Varicella Vaccines Aged Out 08/19/2008 No longer eligible based on patient's age to complete this topic Hepatitis B Vaccines Completed 05/15/2013, 12/13/2008, 10/08/2008, Additional history exists HIV Screening Completed 11/12/2013 Hepatitis C Screening Completed 11/12/2013 Meningococcal ACWY Vaccine Aged Out 03/27/2017, No longer eligible based on patient's age to complete this topic HIB Vaccines Aged Out No longer eligi ble based on patient's age to complete this topic HPV Vaccines Aged Out No longer eligi ble based on patient's age to complete this topic Hepatitis A Vaccines Aged Out No long er eligible based on patient's age to complete this topic IPV Vaccines Aged Out No longer eligi ble based on patient's age to complete this topic MMR Vaccines Aged Out No longer eligi ble based on patient's age to complete this topic Meningococcal B Vaccine Aged Out No l onger eligible based on patient's age to complete this topic RSV Immunization Patients Under 20 months Aged Out No longer eligible based on patient's age to complete this topic Procedures Procedure Name Priority Date/Time Associated Diagnosis Comments CARDIAC HOLTER MONITOR (REPORT GENERATED IN HOUSE) Routine 11/19/2024 9:54 AM EDT Palpitations IRON AND TIBC Routine 10/27/2024 9:34 AM EDT Anemia, unspecified type FERRITIN Routine 10/27/2024 9:34 AM EDT Anemia, unspecified type HEMOGLOBIN A1C Routine 10/27/2024 9:34 AM EDT Hyperglycemia VITAMIN B12 Routine 10/27/2024 9:34 AM EDT Anemia, unspecified type HTN (hypertension), benign Pure hypercholesterolemia Depression, unspecified depression type THYROID STIMULATING HORMONE Routine 10/27/2024 9:34 AM EDT Anemia, unspecified type HTN (hypertension), benign Pure hypercholesterolemia Depression, unspecified depression type COMPLETE BLOOD COUNT Routine 10/27/2024 9:34 AM EDT Anemia, unspecified type HTN (hypertension), benign Pure hypercholesterolemia Depression, unspecified depression type LIPID PANEL WITH REFLEX TO DIRECT LDL Routine 10/27/2024 9:34 AM EDT Anemia, unspecified type HTN (hypertension), benign Pure hypercholesterolemia Depression, unspecified depression type COMPREHENSIVE METABOLIC PANEL Routine 10/27/2024 9:34 AM EDT Anemia, unspecified type HTN (hypertension), benign Pure hypercholesterolemia Depression, unspecified depression type HPV WITH REFLEX GENOTYPE Routine 09/16/2024 3:44 PM EST Encounter for well woman exam with routine gynecological exam Screening for cervical cancer HM URINE ALBUMIN CREATININE RATIO Routine 03/28/2022 COLONOSCOPY Routine 05/21/2017 HEPATITIS C SCREENING Routine 11/12/2013 HIV SCREENING Routine 11/12/2013 from Last 3 Months or Most Recently Relevant to Health Maintenance Results * CARDIAC HOLTER MONITOR (REPORT GENERATED IN HOUSE) (11/19/2024 9:54 AM EDT) Anatomical Region Laterality Modality Cardiac Diagnost ic Narrative 11/25/2024 7:16 PM EDT ?Normal sinus rhythm with occasional PACs and short atrial runs up to 26 beats in duration. ??Patient's symptoms did not correlate with an arrhythmia. [facility] [address] [facility], [id number], [place] [address] TEL: FAX: Type of test: ??48 hour Holter Monitor Date of test: ??11/19/24 Ordering provider: ??Mikki Sales MD Reason for Test: ??Palpitations PVCA Clean Room Assembler Findings: 1: The predominant rhythm was Normal Sinus Rhythm. 2: Occasional PACs with rare atrial pairs, atrial bi/trigeminy, and atrial runs up to 26 beats. Rare PVCs with two couplets. 3: No pauses noted. Longest R-R 1.9 sec. 4: Diary returned with palpitations, lightheadedness, dizziness, and chest pain noted. EKG at those times showed Sinus Rhythm at 58- 99 bpm. No atrial or ventricular ectopy noted at those times. Impression: Sinus rhythm with occasional premature atrial complexes and atrial runs the longest being 26 beats. ??Rare PVCs. ??Patient's symptoms of palpitations lightheadedness and dizziness generally corresponded to sinus rhythm. Mikki Sales MD [facility] PROCEDURES Final Result * (ABNORMAL) Lipid panel with reflex to direct LDL (10/27/2024 9:34 AM EDT) Cholesterol 230(H) 0 - 200 mg/dL LAB CHEMISTRY METHOD 10/27/2024 11:34 AM EDT [facility] Triglycerides 59 0 - 150 mg/dL LAB CHEMISTRY METHOD 10/27/2024 11:34 AM EDT [facility] HDL 117 >=40 mg/dL LAB CHEMISTRY METHOD 10/27/2024 11:34 AM EDT [facility] LDL Calculated 101(H) 0 - 100 mg/dL LAB CHEMISTRY METHOD 10/27/2024 11:34 AM EDT [facility] VLDL Cholesterol Jose Antonio 11.8 mg/dL LAB CHEMISTRY METHOD 10/27/2024 11:34 AM EDT [facility] Non HDL Chol. (LDL+VLDL) 113 <145 mg/dL LAB CHEMISTRY METHOD 10/27/2024 11:34 AM EDT [facility] Chol/HDL Ratio 2.0 0.0 - 4.4 LAB CHEMISTRY METHOD 10/27/2024 11:34 AM EDT [facility] Blood Venous blood specimen / Unknown Venipuncture / Unknown 10/27/2024 9:34 AM EDT 10/27/2024 9:49 AM EDT us Mikki Sales MD LAB BLOOD ORDERABLES Final Res ult Performing Organization Address City/[facility]/ZIP Co de Phone Number [facility] [address] [place] [address], [place] [phone] * Iron and TIBC (10/27/2024 9:34 AM EDT) Iron 72 40 - 150 mcg/dL LAB CHEMISTRY METHOD 10/29/2024 4:24 PM EDT [facility] TIBC 354 250 - 450 mcg/dL LAB CHEMISTRY METHOD 10/29/2024 4:24 PM EDT [facility] Iron Saturation 20 15 - 50 % LAB CHEMISTRY METHOD 10/29/2024 4:24 PM EDT [facility] Blood Venous blood specimen / Unknown Venipuncture / Unknown 10/27/2024 9:34 AM EDT 10/27/2024 9:49 AM EDT us Mikki Sales MD LAB BLOOD ORDERABLES Final Res ult Performing Organization Address City/[facility]/ZIP Co de Phone Number [facility] [address] [place] [address], [place] [phone] * (ABNORMAL) Complete blood count (10/27/2024 9:34 AM EDT) [facility] WBC 3.7(L) 4.8 - 10.8 K/mcL LAB [facility] RBC 5.30(H) 3.80 - 4.80 M/mcL LAB [facility]OLOG[facility] Hemoglobin 12.7 11.5 - 16.0 g/dL LAB HEMETOLOGY METHOD 10/27/2024 10:16 AM [facility] Hematocrit 40.0 35.0 - 47.0 % LAB HEMETOLOGY METHOD 10/27/2024 10:16 AM [facility] MCV 75.5(L) 79.0 - 98.0 FL LAB HEMETOLOGY METHOD 10/27/2024 10:16 AM [facility] MCH 24.0(L) 27.0 - 32.0 pcg LAB HEMETOLOGY METHOD 10/27/2024 10:16 AM [facility] MCHC 31.8(L) 32.0 - 37.0 g/dL LAB HEMETOLOGY METHOD 10/27/2024 10:16 AM [facility] RDW 15.7(H) 11.0 - 15.0 % LAB HEMETOLOGY METHOD 10/27/2024 10:16 AM [facility] Platelets 208 130 - 400 K/mcL LAB HEMETOLOGY METHOD 10/27/2024 10:16 AM [facility] MPV 10.1 7.0 - 11.0 FL LAB HEMETOLOGY METHOD 10/27/2024 10:16 AM [facility] NRBC 0.0 <1.0 % LAB HEMETOLOGY METHOD 10/27/2024 10:16 AM EDT [facility] NRBC Absolute 0.00 <0.10 K/[facility] LAB HEMETOLOGY METHOD 10/27/2024 10:16 AM EDT [facility] Blood Venous blood specimen / Unknown Venipuncture / Unknown 10/27/2024 9:34 AM EDT 10/27/2024 9:51 AM EDT Mikki Sales MD LAB BLOOD ORDERABLES Final Res ult Performing Organization Address [facility]/ZIP Co de Phone Number [facility] [address] [place] [address], * Thyroid stimulating hormone (10/27/2024 9:34 AM EDT) TSH 1.44 0.40 - 4.00 mcIU/mL LAB CHEMISTRY METHOD 10/27/2024 11:16 AM EDT [facility] Blood Venous blood specimen / Unknown Venipuncture / Unknown 10/27/2024 9:34 AM EDT 10/27/2024 9:49 AM EDT Mikki Sales MD LAB BLOOD ORDERABLES Final Res ult Performing Organization Address [facility]/ZIP Co de Phone Number [facility] [address] [place] [address], [place] [phone] * Hemoglobin A1c (10/27/2024 9:34 AM EDT) Hemoglobin A1C 5.8 <6.5 % LAB CHEMISTRY METHOD 10/27/2024 11:43 AM EDT [facility] [facility] Mean Bld Glu Estim. 120 mg/dL LAB CHEMISTRY METHOD 10/27/2024 11:43 AM EDT [facility] Blood Venous blood specimen / Unknown Venipuncture / Unknown 10/27/2024 9:34 AM EDT 10/27/2024 9:51 AM EDT us Mikki Sales MD LAB BLOOD ORDERABLES Final Res ult Performing Organization Address [facility] Co de Phone Number [facility] [address] [place] [address], [place] [phone] * Ferritin (10/27/2024 9:34 AM EDT) Ferritin 90 8 - 252 ng/mL LAB CHEMISTRY METHOD 10/29/2024 4:24 PM EDT [facility] Blood Venous blood specimen / Unknown Venipuncture / Unknown 10/27/2024 9:34 AM EDT 10/27/2024 9:49 AM EDT Mikki Sales MD LAB BLOOD ORDERABLES Final Res ult Performing Organization Address [facility] Co de Phone Number [facility] [address] [place] [address], [place] [phone] * Vitamin B12 (10/27/2024 9:34 AM EDT) Pathologist [facility] Vitamin B-12 440 250 - 900 pcg/mL LAB CHEMISTRY METHOD 10/27/2024 11:33 AM EDT [facility] Blood Venous blood specimen / Unknown Venipuncture / Unknown 10/27/2024 9:34 AM EDT 10/27/2024 9:49 AM EDT Mikki Sales MD LAB BLOOD ORDERABLES Final Res ult Performing Organization Address City/[facility]/ZIP Co de Phone Number [facility] [address] [place] [address], [place] [phone] * Comprehensive metabolic panel (10/27/2024 9:34 AM EDT) Sodium 141 133 - 145 mmol/L LAB [facility]STR[facility] Potassium 3.7 3.5 - 5.5 mmol/L LAB CHEMISTRY METHOD 10/27/2024 11:33 AM [facility] Chloride 104 96 - 110 mmol/L LAB CHEMISTRY METHOD 10/27/2024 11:33 AM [facility] CO2 28 21 - 32 mmol/L LAB CHEMISTRY METHOD 10/27/2024 11:33 AM [facility] Anion Gap 9 3 - 11 LAB CHEMISTRY METHOD 10/27/2024 11:33 AM [facility] Glucose 86 70 - 100 mg/dL LAB CHEMISTRY METHOD 10/27/2024 11:33 AM [facility] BUN 11 5 - 25 mg/dL LAB CHEMISTRY METHOD 10/27/2024 11:33 AM [facility] Creatinine 0.63 0.50 - 1.10 mg/dL LAB CHEMISTRY METHOD 10/27/2024 11:33 AM [facility] eGFR 100 >=60 mL/min/1. 73m2 LAB CHEMISTRY METHOD 10/27/2024 11:33 AM [facility] Comment:Calculation based on the??Chronic Kidney Disease Epidemiology Collaboration (CKD-EPI) equation refit??without adjustment for race. BUN/Creatinine Ratio 17.5 LAB CHEMISTRY METHOD 10/27/2024 11:33 AM [facility] Calcium 9.5 8.5 - 10.5 mg/dL LAB CHEMISTRY METHOD 10/27/2024 11:33 AM [facility] AST (SGOT) 22 10 - 42 unit/L LAB CHEMISTRY METHOD 10/27/2024 11:33 AM [facility] ALT (SGPT) 27 10 - 60 unit/L LAB CHEMISTRY METHOD 10/27/2024 11:33 AM [facility] Alkaline Phosphatase 108 42 - 121 unit/L LAB CHEMISTRY METHOD 10/27/2024 11:33 AM [facility] Total Protein 6.9 6.0 - 8.0 g/dL LAB CHEMISTRY METHOD 10/27/2024 11:33 AM EDT [facility] Albumin 4.0 3.2 - 5.0 g/dL LAB CHEMISTRY METHOD 10/27/2024 11:33 AM EDT [facility] Total Bilirubin 0.9 0.0 - 1.4 mg/dL LAB CHEMISTRY METHOD 10/27/2024 11:33 AM EDT [facility] Blood Venous blood specimen / Unknown Venipuncture / Unknown 10/27/2024 9:34 AM EDT 10/27/2024 9:49 AM EDT Mikki Sales MD LAB BLOOD ORDERABLES Final Res ult Performing Organization Address City/[facility]/ZIP Co de Phone Number [facility] [address] [place] [address], [place] [phone] * HPV with reflex genotype (09/16/2024 3:44 PM EST) Pathologist [facility] HPV Negative Negative LAB MICROBIOLOGY METHOD 09/21/2024 10:00 AM EST [facility] Brushing/Spatula Cervix uteri structure / Unknown 09/16/2024 3:44 PM EST 09/17/2024 1:20 PM EST Sara Ortiz CNM LAB MOLECULAR DIAGNOSTICS ORD ERABLES Final Result [facility] [address] [place] [address], [place] [phone] * Urine Albumin Creatinine Ratio (03/28/2022) Urine Albumin Creatinine Ratio Abstracted Can Kaplan MD HEALTH MAINTENANCE Final Result * Colonoscopy (05/21/2017) Colonoscopy No Interpretation , Abstracted Anatomical Region Laterality Modality Other Historical Provider HEALTH MAINTENANCE Final Result * HIV Screening (11/12/2013) HIV Screening Abstracted Historical Provider HEALTH MAINTENANCE Final Result * Hepatitis C Screening (11/12/2013) Hepatitis C Screening Abstracted Historical Provider HEALTH MAINTENANCE Final Result from Last 3 Months or Most Recently Relevant to Health Maintenance Insurance MEDICAID - [place] 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
--- OUTSIDE RECORDS SUMMARY | 2024-12-24 13:30 | XMS_ITS | Encounter Summary ---
Author Organization [facility] Address [address] [place] [address] Care Team Providers Care Parts Advisor Name Role Phone Mikki Sales MD Primary Care Provider [phone] Reason for Visit * Reason Onset Date Comments Mónica: Bloodwork Request 12/03/2024 Encounter Details Date Type Department Care Team (Late st Contact Info) Description 12/03/2024 Telephone Internal Medicine [place] [address] [place] [address] Mikki Sales MD [address] [place] [phone] Mónica: Bloodwork Request Social History Tobacco Use Types Packs/Day Years [...] file Not on file Not on file documented as of this encounter Progress Notes * Laurie Lira MA - 12/07/2024 11:42 AM EDT 12/07 left a vmail to return call regarding msg below. * Kaley Martin - 12/03/2024 12:50 PM EDT Would like to discuss results from recent blood work done 10/27/24 with LADONNA PT: [phone] documented in this encounter Plan of Treatment Upcoming Encounters Date Type Department Care Team (Late st Contact Info) Description 02/17/2025 8:15 AM EDT Office Visit Orthopedic Surgery - [place] [address] [facility] [address] [place] [phone] Vipul West DPM 175 [facility] [address] [place] [address] 02/17/2025 9:45 AM EDT Office Visit Internal Medicine [place] [address] [facility] [address] [place] [address] Mikki Sales MD 175 [facility] [address] [place] [phone] 02/25/2025 2:15 PM EDT Ancillary Procedure [facility] [address] [facility] [address] [place] [address] 03/10/2025 2:00 PM EDT Office Visit Vascular Surgery [place] [address] [place] [address] Loreta Torres MD [address] [facility] [address] [place] [address] documented as of this encounter Visit Diagnoses Not on filedocumented in this encounter Additional Health Concerns Assessment Noted Time PHQ-9 Depression Total Score: 0 10/28/19 8:33 AM EDT A fall risk assessment has been complete d for the patient 10/27/2024 8:31 AM EDT documented as of this encounter Care Teams Parts Advisor Relationship Specialty Start Date End Date Mikki Sales MD [address] [phone] PCP - General Internal Medicine 10/05/21 documented as of this encounter
== END 2024-12-24 14:09 | disposition home or self-care (01) ==
LOC: HO.HSMS 12:54
PROVIDERS: PCP Internal Medicine; Visit Provider Nurse Practitioner Family
DX: G47.33 Obstructive sleep apnea (adult) (pediatric) (principal); G43.109 Migraine with aura, not intractable, without status migrainosus; F07.81 Postconcussional syndrome; G47.19 Other hypersomnia; R06.83 Snoring; G47.9 Sleep disorder, unspecified
CPT/HCPCS: 99214

== ENCOUNTER → 2024-12-24 12:53 | Outpatient (BNVA) | payer MEDICARE, MEDICAID, SELFPAY | PROVIDERS: PCP Internal Medicine; Visit Provider Nurse Practitioner Family | DX: G43.109 Migraine with aura, not intractable, without status migrainosus (principal); G47.33 Obstructive sleep apnea (adult) (pediatric); G47.19 Other hypersomnia; G47.9 Sleep disorder, unspecified; R06.83 Snoring; F07.81 Postconcussional syndrome | CPT/HCPCS: 99212 ==